=== PATIENT | male | born 1960 | race Caucasian/White ===

== ENCOUNTER 2017-02-25 07:41 | Observation (INO) | payer BC ==
[~2017-02-25] VITALS: Ht 157.5 cm; Wt 74.4 kg
[2017-02-25 08:14] VITALS: BP 125/69
[2017-02-25] MEDS ORDERED: ASCO10004 PO (08:45)
[2017-02-25] MEDS ORDERED: NAPR220T29 PO (08:45)
[2017-02-25] MEDS ORDERED: MULT-658 PO (08:45)
[2017-02-25] MEDS ORDERED: OMEG1CAP34 PO (08:45)
[2017-02-25] MEDS ORDERED: CHOL100011 PO (08:45)
[2017-02-25] MEDS ORDERED: [UNRECOGNIZED DRUG - OTHER] PO (08:45)
[2017-02-25] MEDS ORDERED: ASPI-496 PO (08:45)
[2017-02-25] MEDS ORDERED: LACT1CAP24 PO (08:45)
[2017-02-25] MEDS ORDERED: MIDAZOLAM 1 MG/ML, 5ML ONE (09:41)
[2017-02-25] MEDS ORDERED: FENTANYL PF 100 MCG/2ML ONE (09:41)
[2017-02-25] MEDS ORDERED: VERAPAMIL 2.5 MG/ML, 2ML ONE (09:41)
[2017-02-25] MEDS ORDERED: HEPARIN 1,000 UNITS/ML, 10ML ONE (09:41)
[2017-02-25] MEDS ORDERED: BIVALIRUDIN 250 MG ONE ×2 (09:41→10:50)
[2017-02-25] MEDS ORDERED: TICAGRELOR 90 MG TABLET ONE (09:41)
[2017-02-25] MEDS ORDERED: LIDOCAINE 2%, 20ML ONE (09:41)
[2017-02-25] MEDS ORDERED: BIVALIRUDIN 250 MG in DEXTROSE 5% 50 ML IV SCH (10:50)
[2017-02-25] MEDS ORDERED: ASPIRIN 325 MG TABLET EC ONE (10:50)
[2017-02-25] MEDS ORDERED: ACETAMINOPHEN 325 MG TABLET PO PRN (11:00)
[2017-02-25] MEDS ORDERED: ONDANSETRON 2MG/ML, 2ML IVPush PRN (11:00)
[2017-02-25 11:36] VITALS: BP 97/66
[2017-02-25] MEDS: SODIUM CHLORIDE 0.9% 1,000 ML IV SCH ×2 (11:47→19:00)
[2017-02-25 20:30] VITALS: BP 111/72
[2017-02-25] MEDS ORDERED: ZOLPIDEM 5MG TABLET PO PRN (21:00)
[2017-02-25] MEDS: TICAGRELOR 90 MG TABLET PO SCH (21:43)
[2017-02-26] MEDS: SODIUM CHLORIDE 0.9% 1,000 ML IV SCH (03:00)
[2017-02-26 03:42] VITALS: BP 102/63
[2017-02-26 05:09] LABS: BLOOD UREA NITROGEN 14 mg/dL (7-18)
[2017-02-26 06:55] VITALS: BP 127/85
[2017-02-26] MEDS: TICAGRELOR 90 MG TABLET PO SCH (08:06)
[2017-02-26] MEDS ORDERED: TICA90TA PO (08:27)
[2017-02-26] MEDS ORDERED: ATOR20TA9 PO (08:27)
[2017-02-26] MEDS ORDERED: ASPIRIN 81 MG TABLET EC PO SCH (09:00)
[2017-02-26] MEDS ORDERED: ASCORBIC ACID 500 MG TABLET PO SCH (09:00)
[2017-02-26] MEDS ORDERED: OMEGA-3/FISH OIL CAPSULE PO SCH (09:00)
[2017-02-26] MEDS ORDERED: LACTOBACILLUS CHEW TABLET PO SCH (09:00)
[2017-02-26] MEDS ORDERED: CHOLECALCIFEROL 1,000 UNIT TABLET PO SCH (09:00)
[2017-02-26] MEDS ORDERED: NAPROXEN 250 MG TABLET PO SCH (09:00)
[2017-02-26] MEDS ORDERED: MULTIVITAMIN 1 TABLET PO SCH (09:00)
[2017-02-26] MEDS ORDERED: ATORVASTATIN 20 MG TABLET PO SCH (21:00)
== END 2017-02-26 11:36 | disposition home or self-care (01) ==
LOC: CACL 07:41 → ORIP 10:50 → 5SO 11:12
PROVIDERS: ADMIT Internal Medicine Cardiovascular Disease; ATTEND Internal Medicine Cardiovascular Disease
DX: I25.110 Atherosclerotic heart disease of native coronary artery with unstable angina pectoris (principal); I25.82 Chronic total occlusion of coronary artery; I50.1 Left ventricular failure, unspecified; C78.7 Secondary malignant neoplasm of liver and intrahepatic bile duct; Z90.49 Acquired absence of other specified parts of digestive tract; Z85.038 Personal history of other malignant neoplasm of large intestine
CPT/HCPCS: 36415; 80048; 82040; 93005; 93458; 99156; 99157; C1725; C1769; C1874; C1887; C1894; C9600; G0378; J0583; J1644; J2250; J3010; J3490; Q9967